=== PATIENT | male | born 2000 | race Two or more races ===

== ENCOUNTER 2020-03-17 15:23 | Emergency (ER) | payer OTHER, SELFPAY ==
[2020-03-17 15:26] VITALS: BP 114/75; PULSE 84; RESP 18; TEMP 36.2; O2SAT 100
[2020-03-17] MEDS: SODIUM CHLORIDE 0.9% IV 1,000 ML 999 ML IV CONT ×2 (15:44→16:54)
[2020-03-17] MEDS: ONDANSETRON INJ 4 MG/2 ML VIAL IV PUSH (15:44)
[2020-03-17 15:46] VITALS: BP 119/61; PULSE 74; RESP 22; O2SAT 100
[2020-03-17 15:52] LABS: Basophils Percent Auto 0.2 % (0.2-1.2); Eosinophils Percent Auto 0.1 % (0-4.4); Hematocrit 43.9 % (42.0-52.0); Hemoglobin 15.5 g/dL (14.0-18.0); Immature Granulocyte Absolute 0.04 K/mm3 (0.00-0.031); Immature Granulocyte Percent A 0.3 % (0-0.5); Lymphocytes Absolute Auto 1.41 K/mm3 (0.9-3.2); Lymphocytes Percent Auto 11.5 % (18.3-44.2); Mean Corpuscular HGB Conc 35.3 g/dl (32-36); Mean Corpuscular Hemoglobin 31.9 pg (26-34); Mean Corpuscular Volume 90.3 fl (80-100); Mean Platelet Volume 10.3 fl (7.4-10.4); Monocytes Absolute Auto 0.9 K/mm3 (0.1-0.6); Monocytes Percent Auto 6.9 % (2.6-8.5); Neutrophils Absolute Auto 9.9 K/mm3 (1.3-6.7); Platelet Count Result 253 k/mm3 (150-375); Red Blood Count 4.86 M/mm3 (4.6-6.20); Red Cell Distribution Width 11.7 % (11.5-14.5); White Blood Count 12.3 K/mm3 (4.5-10.0)
[2020-03-17 16:00] VITALS: BP 115/96; PULSE 75; RESP 20; O2SAT 96
[2020-03-17 16:06] LABS: Magnesium 1.8 mg/dL (1.6-2.3)
[2020-03-17 16:15] LABS: Alanine Aminotransferase 19 U/L (4-50); Albumin Level 5.6 g/dL (3.5-5.1); Alkaline Phosphatase 94 U/L (38-126); Aspartate Amino Transferase 38 U/L (17-59); Bilirubin,Total 2.3 mg/dL (0.2-1.3); Blood Urea Nitrogen 9 mg/dL (9-20); Calcium 10.3 mg/dL (8.4-10.2); Carbon Dioxide 19 mmol/L (22-30); Chloride 105 mmol/L (98-107); Estimated CRCL calculation 116 ml/min; Estimated Glomerular Filt Rate > 60; Glucose 109 mg/dL (75-110); Lipase 43 U/L (23-300); Potassium 3.8 mmol/L (3.4-5.0); Sodium 141 mmol/L (137-145)
--- NOTE | 2020-03-17 16:16 | ED.GENADULT ---
HPI - General Adult General Chief complaint: Nausea/Vomiting/Diarrhea <Hunter Chowdary PA-C - Last Filed: 03/17/20 17:17> Stated complaint: dehydrated, ETOH <Hunter Chowdary PA-C - Last Filed: 03/17/20 17:17> Time Seen by Provider: 03/17/20 15:33 <Hunter Chowdary PA-C - Last Filed: 03/17/20 17:17> Source: patient <Hunter Chowdary PA-C - Last Filed: 03/17/20 17:17> Mode of arrival: ambulatory <Hunter Chowdary PA-C - Last Filed: 03/17/20 17:17> Limitations: no limitations <Hunter Chowdary PA-C - Last Filed: 03/17/20 17:17> History of Present Illness HPI narrative: Patient is a 19-year-old male who presents with body cramps aching nausea and vomiting that began last night after becoming intoxicated on alcohol patient presents to emergency department noting that he continues to have muscle cramps and inability to tolerate p.o. intake has not been seen for this complaint denies similar occurrence in the past <Hunter Chowdary PA-C - Last Filed: 03/17/20 17:17> Related Data Allergies/adverse reactions: Allergies Allergy/AdvReac Type Severity Reaction Status Date / Time No Known Allergies Allergy Verified 03/17/20 15:28 <Hunter Chowdary PA-C - Last Filed: 03/17/20 17:17> Review of Systems Review of Systems: All systems reviewed & are unremarkable except as noted in HPI and below <Hunter Chowdary PA-C - Last Filed: 03/17/20 17:17> PMFSH Past Medical History Medical History: Medical History (Updated 03/17/20 @ 17:16 by Hunter Chowdary PA-C) Anxiety <Hunter Chowdary PA-C - Last Filed: 03/17/20 17:17> Social History Social History: Social History (Updated 03/17/20 @ 16:17 by Hunter Chowdary PA-C) Smoking status: Never smoker Gender identity (if verbalized by the patient): Male <Hunter Chowdary PA-C - Last Filed: 03/17/20 17:17> Exam Narrative: Exam Narrative: GENERAL: ill-appearing, well-nourished, and in mild acute distress. HEAD: Normocephalic, atraumatic. EYES: PERRLA and EOMI. ENT: Nares clear, no rhinorrhea or epistaxis. Mucous membranes moist. NECK: Supple. No adenopathy or masses. CHEST: Clear to auscultation. No respiratory distress. No wheezes rales or rhonchi HEART: Regular rate and rhythm. No murmur heard. Normal peripheral pulses. ABDOMEN: Soft, nontender, nondistended EXTREMITIES: Normal range of motion. No edema. SKIN: Warm, dry, no rash. NEURO: No focal deficits. Alert and oriented x3. Cranial nerves II through XII grossly intact PSYCH: Normal mood and affect. <Hunter Chowdary PA-C - Last Filed: 03/17/20 17:17> Course Course Emergency Course: Patient in the room in no distress feeling much better with interventions <Hunter Chowdary PA-C - Last Filed: 03/17/20 17:17> Vital Signs Vital signs: Vital Signs Temperature 97.1 F L 03/17/20 15:26 Pulse Rate 84 03/17/20 15:26 Respiratory Rate 18 03/17/20 15:26 Blood Pressure 114/75 03/17/20 15:26 Pulse Oximetry 100 03/17/20 15:26 Temperature 97.1 F L 03/17/20 15:26 Pulse Rate 68 03/17/20 17:00 Respiratory Rate 20 03/17/20 17:00 Blood Pressure 127/77 03/17/20 17:00 Pulse Oximetry 98 03/17/20 17:00 <GIACOMO Durán Last Filed: 03/17/20 17:17> Vital Signs Temperature 97.1 F L 03/17/20 15:26 Pulse Rate 84 03/17/20 15:26 Respiratory Rate 18 03/17/20 15:26 Blood Pressure 114/75 03/17/20 15:26 Pulse Oximetry 100 03/17/20 15:26 Temperature 97.1 F L 03/17/20 15:26 Pulse Rate 68 03/17/20 17:00 Respiratory Rate 20 03/17/20 17:00 Blood Pressure 127/77 03/17/20 17:00 Pulse Oximetry 98 03/17/20 17:00 <Mily Oh MD - Last Filed: 03/17/20 17:31> Medical Decision Making MDM Narrative Medical decision making narrative: Patient in the room at this time in no distress no high risk changes in the blood work was hydrated with fluids and antiemetics fe
[2020-03-17] MEDS: FAMOTIDINE 20 MG/2 ML VIAL IV PUSH (16:54)
[2020-03-17] MEDS: LORAZEPAM INJ 2 MG/ML VIAL 1 MG IV PUSH (16:55)
[2020-03-17 17:00] VITALS: BP 127/77; PULSE 68; RESP 20; O2SAT 98
[2020-03-17 17:47] LABS: Add Urine Microscopic? YES; Amorphous Sediment Urine Few; Appearance Urine Clear (Clear); Bilirubin Urine Negative (Negative); Blood Urine Negative (Negative); Color Urine Yellow (Yellow); Glucose Urine UA Negative (Negative); Ketones Urine Negative (Negative); Leukocyte Esterase Ur Negative LEU/UL (Negative); Mucus Urine Rare /lpf; Nitrate Urine Negative (Negative); Protein Urine 3+ mg/dL (Negative); RBC Urine 0-2 /hpf (0-2); Specific Grav Ur 1.027 (1.001-1.035); Urobilinogen Urine Negative mg/dL (<2.0); WBC Urine 0-3 /hpf
[2020-03-17 18:06] VITALS: BP 120/80; PULSE 79; RESP 23; O2SAT 99
== END 2020-03-17 18:07 | disposition home or self-care (01) ==
PROVIDERS: Emergency Medicine Emergency Medical Services; Emergency Provider General Practice
DX: R11.2 Nausea with vomiting, unspecified (principal)
CPT/HCPCS: 36415; 80053; 81001; 83690; 83735; 85025; 96361; 96374; 96375; 99284; J0131; J2060; J2405; J7030

== ENCOUNTER 2021-03-31 19:18 | Emergency (ER) | payer OTHER, SELFPAY ==
[2021-03-31 19:48] VITALS: BP 108/66; PULSE 69; RESP 18; TEMP 37.3; O2SAT 99
--- NOTE | 2021-03-31 21:05 | ED.LOWEXIN ---
HPI - Extremity Injury (Lower) General Chief Complaint: Extremity Injury, Lower Stated Complaint: toe injury Time Seen by Provider: 03/31/21 20:46 Source: patient Mode of arrival: ambulatory Limitations: no limitations History of Present Illness HPI Narrative: 20-year-old with no major medical problems here for work note. Patient states he I will see his toenail and unable to wear his shoe. He states that he bled early this complaint: foot injury (Left great toe) Onset (ago): day(s) (2) Type of Injury: blunt Place: home Severity: mild Relieving factors: nothing Exacerbating factors: nothing Context: direct blow Other symptoms: none Related Data Home Medications Medication Instructions Recorded Confirmed No Home Medications 03/31/21 03/31/21 Allergies Allergy/AdvReac Type Severity Reaction Status Date / Time No Known Allergies Allergy Verified 03/31/21 20:27 Review of Systems Review of Systems: All systems reviewed & are unremarkable except as noted in HPI and below Constitutional: Constitutional: Reports no additional constitutional complaints Eyes: Eyes: Reports no additional eye complaints ENT: Reports system reviewed and no additional complaints, except as documented Cardiovascular: Cardiovascular: Reports no additional cardiovascular complaints Respiratory: Respiratory: Reports no additional respiratory complaints Gastrointestinal: Gastrointestinal: Reports no additional gastrointestinal complaints Musculoskeletal: Musculoskeletal: Reports as per HPI [facility] Past Medical History Medical History Anxiety Social History Social History Smoking status: Never smoker Gender identity (if verbalized by the patient): Male Exam Narrative: Exam Narrative: GENERAL: Well-appearing, well-nourished, and in no acute distress. HEAD: Normocephalic, atraumatic. EYES: PERRLA and EOMI.. NECK: Supple. CHEST: Clear to auscultation. No respiratory distress. HEART: Regular rate and rhythm. No murmur heard. Normal peripheral pulses. EXTREMITIES: Normal range of motion. No edema. Partial avulsion of the nail of left great toe no active bleeding or dried blood present . SKIN: Warm, dry, no rash. NEURO: No focal deficits. Alert and oriented x3. PSYCH: Normal mood and affect. Course Vital Signs Vital signs: Vital Signs Temperature 37.3 C 03/31/21 19:48 Pulse Rate 69 03/31/21 19:48 Respiratory Rate 18 03/31/21 19:48 Blood Pressure 108/66 03/31/21 19:48 Pulse Oximetry 99 03/31/21 19:48 Temperature 37.3 C 03/31/21 19:48 Pulse Rate 69 03/31/21 19:48 Respiratory Rate 18 03/31/21 19:48 Blood Pressure 108/66 03/31/21 19:48 Pulse Oximetry 99 03/31/21 19:48 Discharge Plan Discharge Clinical Impression: Fingernail avulsion, partial Qualifiers: Encounter type: initial encounter Qualified Code(s): S61.309A - Unspecified open wound of unspecified finger with damage to nail, initial encounter Patient Disposition: Home, Self-Care Condition: Stable Instructions: Antibiotic Form, Nail Avulsion (ED) Additional Instructions: take tylenol for pain , Prescriptions: No Action No Home Medications RF: 0 Follow-up/Referrals: PHYSICIAN,CHEF [Primary Care Provider] - Freddie Duncan MD [Physician] - Stand Alone Forms: Work/School Release IP Time of Disposition: 21:08
== END 2021-03-31 21:50 | disposition home or self-care (01) ==
PROVIDERS: Emergency Provider Family Medicine
DX: S91.201A Unspecified open wound of right great toe with damage to nail, initial encounter (principal); X58.XXXA Exposure to other specified factors, initial encounter
CPT/HCPCS: 99282